=== PATIENT | female | born 1960 | race Caucasian/White ===

== ENCOUNTER 2018-05-14 04:22 | Inpatient (IN) | payer OTHER ==
[~2018-05-14] VITALS: Ht 160 cm; Wt 54.4 kg
[~2018-05-14 04:22] MED LIST: ACETAMINOPHEN325 M1 PO; AUGMENTIN 875875 MG PO; BACTRIM DS TAB1 EACH PO; BENADRYL25 MG PO; BENTYL10 MG PO; BONIVA150 MG PO; BONIVA2.5 MG PO; CARISOPRODOL 3350 MG PO; CHANTIX1 MG; CIPROFLOXACIN500 M1 PO; COMPAZINE25 MG RECTAL; DILAUDID 2 MG TA2 MG PO; DILAUDID4 MG PO; EXCEDRIN CAPLE1 EACH PO; FLAGYL500 MG PO; FLEXERIL; IBUPROFEN 800800 M1 PO; KEFLEX500 MG PO; LINZESS290 MCG PO; MELATONIN3 MG PO; MULTI VITAMIN1 EACH PO; NORCO 5-325 TA1 EAC1 PO; ONDANSETRON HCL4 M2 PO; PERCOCET 5-3251 EACH PO; PLAVIX 75 MG TA75 M1 PO; PLAVIX 75 MG TA75 MG PO; PRILOSEC 20 MG20 MG PO; PROMS25 WY RECTAL; PROZAC 20 MG20 M1 PO; PROZAC PO; PROZAC20 MG PO; PROZAC40 MG PO; SIMVASTATIN20 MG PO; TRAMADOL 50 MG50 MG PO; TRAMADOL HCL50 MG PO; ULTRAM 50MG TAB50 MG PO; VANCOCIN 250 M250 M1 PO; VITAMIN D2000 UNIT PO; ZANAFLEX2 MG PO; ZANAFLEX4 M2 PO; ZOFRAN ODT4 MG PO; ZOFRAN ODT4 MG SUBLING
[2018-05-14 04:23] VITALS: BP 120/59
[2018-05-14 05:08] LABS: HEMATOCRIT 39.9 % (37.0-47.0); HEMOGLOBIN 13.1 gm/dL (12.0-15.0); MCH 28.3 pg (26.0-34.0); MCHC 32.9 g/dL (28.0-37.0); MPV 8.3 fl. (7.2-11.1); NUCLEATED RBCS 0 /100WBC; PLATELET COUNT* 338 thou/uL (150-400); RBC 4.63 mil/uL (4.20-5.00); RDW-CV 14.4 % (10.5-14.5); WBC 27.8 thou/uL (4.0-11.0)
[2018-05-14 05:15] LABS: CALCIUM 9.3 mg/dL (8.5-10.1); CREATININE 0.9 mg/dL (0.6-1.3); POTASSIUM 3.9 mmol/L (3.5-5.1)
[2018-05-14 05:20] LABS: ALBUMIN 3.7 g/dL (3.4-5.0); TOTAL BILIRUBIN 0.2 mg/dL (<0.1-1.0); TOTAL PROTEIN 7.3 g/dL (6.4-8.2)
[2018-05-14 05:52] LABS: ABSOLUTE LYMPHOCYTES 4.2 thou/uL (0.8-5.3); ABSOLUTE MONOCYTES 1.1 thou/uL (0.0-1.2); ABSOLUTE NEUTROPHILS 22.5 thou/uL (1.6-8.1)
[2018-05-14 05:53] LABS: ANISOCYTOSIS 1+; PLATELET ESTIMATE ADEQUATE; POIKILOCYTOSIS 1+
[2018-05-14 08:50] LABS: URINE BILIRUBIN NEGATIVE (Negative); URINE BLOOD TRACE (Negative); URINE CLARITY CLEAR; URINE COLOR YELLOW; URINE GLUCOSE-RANDOM NEGATIVE (Negative); URINE KETONES NEGATIVE (Negative); URINE LEUKOCYTES-REFLEX NEGATIVE (Negative); URINE NITRITE-REFLEX NEGATIVE (Negative); URINE PROTEIN NEGATIVE (Negative); URINE SPECIFIC GRAVITY <= 1.005 (1.005-1.030); URINE UROBILINOGEN 0.2 E.U./dl (0.2-1.0)
[2018-05-14 08:53] VITALS: BP 96/52
[2018-05-14 09:41] VITALS: BP 112/42
[2018-05-14 15:44] VITALS: BP 98/58
--- NOTE | 2018-05-14 17:33 | NUR ---
ASSUMED CARE OF PATIENT AFTER ADMISSION FROM ED AT 0910. ADMISSION HISTORY AND ASSESSMENT COMPLETED AND CHARTED. VSS ON ROOM AIR. PATINT HAS HAD NO COMPLAINTS OF NAUSEA OR SOA THIS SHIFT. PAIN HAS BEEN MANAGED WITH PO PAIN MEDICATION. FLUIDS AND ANTIBIOTICS INFUSED ORDERED. PATIENT HAS BEEN SLEEPING UPON ROUNDS THROUGHOUT SHIFT. CALL LIGHT IS WITHIN REACH, HORULY ROUNDS MAINTAINED, NURSING WILL CONTINUE TO MONITOR.
[2018-05-14 20:00] VITALS: BP 92/41
[2018-05-15 03:53] LABS: HEMATOCRIT 35.2 % (37.0-47.0); HEMOGLOBIN 11.6 gm/dL (12.0-15.0); MCH 28.4 pg (26.0-34.0); MCHC 33.1 g/dL (28.0-37.0); MCV 85.8 fL (80.0-100.0); MPV 8.1 fl. (7.2-11.1); RBC 4.1 mil/uL (4.20-5.00); RDW-CV 14.5 % (10.5-14.5)
[2018-05-15 04:30] LABS: ALBUMIN 3.1 g/dL (3.4-5.0); CALCIUM 8.7 mg/dL (8.5-10.1); CREATININE 0.9 mg/dL (0.6-1.3); MAGNESIUM 1.8 mg/dL (1.8-2.4); POTASSIUM 4.1 mmol/L (3.5-5.1); TOTAL BILIRUBIN 0.3 mg/dL (<0.1-1.0); TOTAL PROTEIN 5.9 g/dL (6.4-8.2)
[2018-05-15 04:35] LABS: WBC 11.6 thou/uL (4.0-11.0)
--- NOTE | 2018-05-15 06:00 | NUR ---
PATIENT ORIENTED X4 ON HOURLY ROUNDS. PO DILAUDID GIVEN X1 FOR ABD PAIN WITH GOOD RESULTS REPORTED. UP AD JOELLEN. TOLERATED CLEAR LIQUIDS OVERNIGHT. VITALS STABLE. CONTINUE TO MONITOR.
[2018-05-15 08:20] VITALS: BP 94/40
[2018-05-15 09:57] VITALS: BP 94/40
--- NOTE | 2018-05-15 14:09 | NUR ---
ASSUMED CARE OF PATIENT AFTER MORNING REPORT AT 0720. ALERT AND ORIENTED X4. ASSESSMENT COMPLETED AND CHARTED. VSS ON ROOM AIR/ PATIENT HAS NO COMPLAINTS OF NAUSEA OR SOA. PAIN HAS BEEN MINIMAL AND MANAGED WITH ORAL PAIN MEDICAION. FLUIDS AND ANTIBIOTICS INFUSED ORDERED. PATIENTS DIET ADVANCED FROM CLEAR LIQUIDS TO REGULAR AND PATIENT IS TOLERATING IT WELL. PATIENT DISCHARGED AT 1346. ALL PERSONAL BELONGINGS AND DISCHARGE INFORMATION SENT WITH PATIENT UPON DISCHARGE.
--- NOTE | 2018-05-31 12:36 | CON ---
[address] [address] CONSULTATION Name: RAÚL CARIAS Room: [address] IN .R.#: [id number] Admission: 05/14/18 Attend Phys: Dolores Montgomery MD Discharge: 05/15/18 Date of : 58 Report #: [id number] THIS REPORT FOR: //name// CC: Federico Montgomery MD DATE OF SERVICE: 05/14/2018 REFERRING PHYSICIAN: Dr. Dolores Montgomery. REASON FOR CONSULTATION: Abdominal pain and diarrhea. IMPRESSION: 1. Abdominal pain associated with nausea, vomiting, diarrhea, most compatible with previous episodes of ischemic colitis -- evaluate for infectious causes related to the same. 2. Dehydration secondary to the same. 3. Lactic acidosis, which has resolved. RECOMMENDATIONS: 1. Since the patient is doing better at this time, we will advance diet as tolerated. 2. Await the results of his stool studies to evaluate for culture and sensitivity as well as C. difficile toxin assay. 3. We will switch over to oral pain medication in the morning. If she is tolerating diet, she can be controlled with oral medications and she can probably go home tomorrow. We will plan at this time for endoscopic evaluation. I have discussed the plan with patient as well and she is agreeable to the same. HISTORY OF PRESENT ILLNESS: The patient is a very pleasant 57-year-old white female with history of recurrent bouts of ischemic colitis who was admitted to hospital early this morning with complaints of rather severe abdominal pain associated with nausea, vomiting, diarrhea. She has had episodes like this in the past, has been hospitalized at least usually once a year, sometimes here, sometimes at [facility] with the last hospitalization being over a year ago. She has had documented episodes of ischemic colitis, symptoms related to constipation, but she does not have any issues related to the same at this time. She just woke up with severe abdominal pain associated with nausea, vomiting, diarrhea, and admitted to the hospital for further evaluation. She has not been exposed to any antibiotics and has not had any other issues. Her last endoscopic evaluation of her lower GI tract was performed. Her last colonoscopy was performed by me in 06/2013 at [facility] and was unremarkable. She was admitted to hospital for further [place] [address] CONSULTATION Name: RAÚL CARIAS Room: [address]#: [id number] Admission: 05/14/18 Attend Phys: Dolores Montgomery MD Discharge: 05/15/18 Date of : 58 Report #: [id number] treatment. ALLERGIES: OXYCODONE AND HYDROCODONE WELL METRONIDAZOLE BECAUSE THIS MAKES HER SICK. MEDICATIONS: At home include fluoxetine, hydromorphone p.r.n. when she has severe back pain, Plavix and p.r.n. ibuprofen. PAST MEDICAL AND SURGICAL HISTORY: Remarkable for history of recurrent ischemic colitis with bouts related to the same. She has had previous celiac artery stenting that has not helped with issues related to the same. She has had history of migraines, anxiety and depression. She has had total hysterectomy, tubal ligation, appendectomy, history of Lyme disease in the past, history of C. diff as well back in 2008. SOCIAL HISTORY: The patient does smoke pot, but not on a regular basis. She previously smoked tobacco, but quit over a year ago. She drinks occasional alcohol. FAMILY HISTORY: Negative. PHYSICAL EXAMINATION: GENERAL: A pleasant 57-year-old white female who is awake and alert. CARDIOPULMONARY: Revealed a regular rate and rhythm. LUNGS: Clear. ABDOMEN: Soft and minimally tender. LABORATORY DATA: From admission revealed a white count 27.8, hemoglobin 13.1, platelet count 338,000, MCV is 86 and RDW 14.4. Her sodium 138, potassium 3.9, chloride 105, bicarbonate is 25, BUN is 15, creatinine 0.9. Her GFR is 64. Total bilirubin 0.2, alkaline phosphatase 117, AST 38, ALT 39, albumin is 3.7. CT scan of the abdomen and pelvis performed suggest that there was diffuse colonic edema compatible with colitis, otherwise unremarkable. DISCUSSION: At the present time, this appears to be a typical episode for the patient with regards to her issues and the same. We will proceed with conservative measures at this point in time, however, she will be able to go home in the next 24-48 hours. <ELECTRONICALLY SIGNED> By: Darek Kirby DO 05/31/18 1236 1121 1803Gmoi Kirby DO /nt
== END 2018-05-15 13:46 | disposition home or self-care (01) | DRG 392 ==
LOC: M.ERS 04:22 → M.ORTHSURG 06:44 → M.TBA-ER 06:44 → M.ORTHSURG 08:49
PROVIDERS: Emergency Medicine; ADMIT Internal Medicine
DX: A08.4 Viral intestinal infection, unspecified (principal); R65.10 Systemic inflammatory response syndrome (SIRS) of non-infectious origin without acute organ dysfunction; K51.00 Ulcerative (chronic) pancolitis without complications; E87.2 Acidosis; M19.90 Unspecified osteoarthritis, unspecified site; F32.9 Major depressive disorder, single episode, unspecified; G43.909 Migraine, unspecified, not intractable, without status migrainosus; D72.829 Elevated white blood cell count, unspecified; E86.0 Dehydration; Z90.49 Acquired absence of other specified parts of digestive tract; Z90.710 Acquired absence of both cervix and uterus; Z88.6 Allergy status to analgesic agent; Z88.8 Allergy status to other drugs, medicaments and biological substances; Z87.891 Personal history of nicotine dependence; Z79.899 Other long term (current) drug therapy

== ENCOUNTER 2018-09-30 10:50 | Inpatient (IN) | payer OTHER ==
[~2018-09-30] VITALS: Ht 160 cm; Wt 54.0 kg
[2018-09-30] VITALS (7 sets, daily range): BP systolic 83–129; BP diastolic 32–87
--- NOTE | ~2018-09-30 | CON ---
[address] [address] CONSULTATION Name: RAÚL CARIAS Room: [address]#: [id number] Admission: 09/30/18 Attend Phys: Dolores Montgomery MD Discharge: 10/03/18 Date of : 58 Report #: [id number] THIS REPORT FOR: //name// CC: Federico Montgomery DATE OF SERVICE: 10/02/2018 HISTORY OF PRESENT ILLNESS: This is a pleasant 58-year-old female with past medical history significant for chronic idiopathic constipation, recurrent episode of ischemic colitis who is presenting with an episode of abdominal pain and bloody bowel movements. The patient presented on 09/30 to the hospital with several episodes of hematochezia. The patient reports noticing a moderate amount of bright red blood in her stool. She reports associated epigastric abdominal pain along with cramps. Prior to presentation, the patient reports that she had been increasingly constipated for the last 2 weeks. She denies any rectal pain. The patient also denies any weight loss, nausea, vomiting, hematemesis or melena. PAST MEDICAL HISTORY: As mentioned above. The patient has a history of recurrent ischemic colitis. PAST SURGICAL HISTORY: The patient had appendectomy, hysterectomy, tubal ligation in the past. SOCIAL HISTORY: The patient is a former smoker and has a 33-[id number]-jcbh smoking history. She denies alcohol use, but does report intermittent marijuana use. FAMILY HISTORY: There is no significant family history of colorectal cancer. REVIEW OF SYSTEMS: A comprehensive 10-point review of systems is negative except for what was mentioned in the HPI. PHYSICAL EXAMINATION: VITAL SIGNS: Temperature 36.9, pulse rate 80, respiratory rate 17, blood pressure 115/65. GENERAL: The patient is alert, awake, oriented x 3. HEENT: Pupils are equal, round, reactive to light and accommodation. Mucous membranes are moist. There is no congestion. LUNGS: Clear to auscultation bilaterally. CARDIOVASCULAR: Rate and rhythm regular, S1, S2 present. ABDOMEN: Soft. There is no distention, guarding or rigidity. SKIN: Warm and dry. NEUROLOGIC: There is no focal [place] [address] CONSULTATION Name: RAÚL CARIAS Room: [address]#: [id number] Admission: 09/30/18 Attend Phys: Dolores Montgomery MD Discharge: 10/03/18 Date of : 58 Report #: [id number] LABORATORY DATA: Hemoglobin 11.3, hematocrit 33.7, platelet count 271. WBC count 15.5. Sodium 140, potassium 3.3, chloride 106, bicarbonate 20, BUN 9, creatinine 0.6, calcium 8.4, magnesium 1.6, total bilirubin 0.6, AST 30, ALT 37, alkaline phosphatase 70. CT abdomen and pelvis performed on 09/30, normal CT of abdomen and pelvis. ASSESSMENT AND PLAN: This is a pleasant 58-year-old female with past medical history significant for recurrent ischemic colitis, presenting with abdominal pain and hematochezia. Her last bowel movement was a day and a half and since then, the patient has had no further hematochezia. I offered the patient a colonoscopy for endoscopic evaluation of the source of the bleeding; however, the patient refused. She recently had a colonoscopy by Dr. Kirby. The colonoscopy was performed on 08/13/2018, and this demonstrated a completely normal colonoscopy. At this point, we would conservatively manage her and monitor her for signs of bleeding. Thank you for this consult. The GI Service will continue to follow. By: 1243 [id number] Quevedo MD /nt
[2018-09-30 11:19] LABS: HEMATOCRIT 37.2 % (37.0-47.0); HEMOGLOBIN 12.1 gm/dL (12.0-15.0); MCHC 32.5 g/dL (28.0-37.0); MCV 86.3 fL (80.0-100.0); MPV 8.3 fl. (7.2-11.1); NUCLEATED RBCS 0 /100WBC; PLATELET COUNT* 351 thou/uL (150-400); RBC 4.31 mil/uL (4.20-5.00); RDW-CV 14.6 % (10.5-14.5); WBC 21.2 thou/uL (4.0-11.0)
[2018-09-30 11:29] LABS: ANION GAP 18 mmol/L (7-16); BUN 18 mg/dL (7-18); CALCIUM 8.5 mg/dL (8.5-10.1); CHLORIDE 106 mmol/L (98-107); CO2 17 mmol/L (21-32); CREATININE 0.8 mg/dL (0.6-1.3); GLUCOSE 157 mg/dL (70-99); POTASSIUM 3.3 mmol/L (3.5-5.1); SODIUM 141 mmol/L (136-145)
[2018-09-30 11:31] LABS: APTT 26.6 Seconds (25.0-31.3); PROTIME 10.6 Seconds (9.20-11.50)
[2018-09-30 11:36] LABS: ALBUMIN 3.8 g/dL (3.4-5.0); ALKALINE PHOSPHATASE 98 U/L (46-116); LIPASE 78 U/L (73-393); SGOT 31 U/L (15-37); SGPT 37 U/L (30-65); TOTAL BILIRUBIN 0.3 mg/dL (<0.1-1.0); TOTAL PROTEIN 7.1 g/dL (6.4-8.2); TROPONIN-I LEVEL <0.06 ng/mL (<0.06)
[2018-09-30 11:49] LABS: URINE BILIRUBIN NEGATIVE (Negative); URINE BLOOD 1+ (Negative); URINE CLARITY CLEAR; URINE COLOR YELLOW; URINE GLUCOSE-RANDOM TRACE (Negative); URINE KETONES 2+ (Negative); URINE LEUKOCYTES-REFLEX NEGATIVE (Negative); URINE NITRITE-REFLEX NEGATIVE (Negative); URINE PROTEIN NEGATIVE (Negative); URINE SPECIFIC GRAVITY 1.015 (1.005-1.030); URINE UROBILINOGEN 0.2 E.U./dl (0.2-1.0)
[2018-09-30 12:02] LABS: AMP/METHAMP Negative (Negative); BARBITURATES Negative (Negative); BENZODIAZEPINES Negative (Negative); COCAINE Negative (Negative); METHADONE Negative (Negative); OPIATES Negative (Negative); PCP Negative (Negative); THC POSITIVE (Negative)
[2018-09-30 12:08] LABS: ABSOLUTE LYMPHOCYTES 1.9 thou/uL (0.8-5.3); ABSOLUTE MONOCYTES 0.2 thou/uL (0.0-1.2); ABSOLUTE NEUTROPHILS 19.1 thou/uL (1.6-8.1)
[2018-09-30 12:10] LABS: GIANT PLATELETS RARE; LARGE PLATELETS RARE; PLATELET ESTIMATE ADEQUATE
[2018-09-30 12:12] LABS: HYPOCHROMASIA 1+
[2018-09-30 12:13] LABS: BURR CELLS Occasional; OVALOCYTES Occasional; POIKILOCYTOSIS 1+
[2018-09-30 12:14] LABS: CLUMPED PLTS FEW; MACROCYTES Occasional
[2018-09-30 12:15] LABS: POLYCHROMASIA Occasional
[2018-09-30 12:24] LABS: SQUAMOUS NONE SEEN /LPF (0-3)
[2018-09-30 12:25] LABS: BACTERIA-REFLEX 1-9 Few /HPF (None Seen); CASTS None Seen /LPF (None Seen); MUCUS None Seen strn/LPF (None Seen); URINE RBC 0-2 Rare /HPF (0-2); URINE WBC-REFLEX 0-5 Rare /HPF (0-5)
[2018-09-30 12:26] LABS: CRYSTALS None Seen /LPF (None Seen)
[2018-09-30 15:02] LABS: HEMATOCRIT 34.1 % (37.0-47.0); HEMOGLOBIN 11.3 gm/dL (12.0-15.0); MCH 28.3 pg (26.0-34.0); MCHC 33.1 g/dL (28.0-37.0); MCV 85.4 fL (80.0-100.0); MPV 8.3 fl. (7.2-11.1); RBC 3.99 mil/uL (4.20-5.00); RDW-CV 14.2 % (10.5-14.5); WBC 23.2 thou/uL (4.0-11.0)
[2018-09-30 19:04] LABS: ABSOLUTE LYMPHOCYTES 2.3 thou/uL (0.8-5.3); ABSOLUTE NEUTROPHILS 16.2 thou/uL (1.6-8.1); BASOPHILS 0.1 %; HEMATOCRIT 33.9 % (37.0-47.0); HEMOGLOBIN 11.3 gm/dL (12.0-15.0); LYMPHOCYTES 11.7 %; MCH 28.2 pg (26.0-34.0); MCHC 33.3 g/dL (28.0-37.0); MCV 84.9 fL (80.0-100.0); MONOCYTES 5.1 %; MPV 8.6 fl. (7.2-11.1); NUCLEATED RBCS 0 /100WBC; PLATELET COUNT* 294 thou/uL (150-400); POLYS 83.1 %; RBC 3.99 mil/uL (4.20-5.00); RDW-CV 14.4 % (10.5-14.5); WBC 19.5 thou/uL (4.0-11.0)
[2018-10-01] VITALS (11 sets, daily range): BP systolic 93–115; BP diastolic 41–73
[2018-10-01 04:07] LABS: HEMATOCRIT 32.1 % (37.0-47.0); HEMOGLOBIN 10.8 gm/dL (12.0-15.0); MCH 28.8 pg (26.0-34.0); MCHC 33.7 g/dL (28.0-37.0); MCV 85.5 fL (80.0-100.0); MPV 8.4 fl. (7.2-11.1); RBC 3.75 mil/uL (4.20-5.00); RDW-CV 14.5 % (10.5-14.5); WBC 15.5 thou/uL (4.0-11.0)
[2018-10-01 05:20] LABS: ALBUMIN 3.1 g/dL (3.4-5.0); CREATININE 0.8 mg/dL (0.6-1.3); MAGNESIUM 1.8 mg/dL (1.8-2.4); POTASSIUM 3.4 mmol/L (3.5-5.1); TOTAL BILIRUBIN 0.5 mg/dL (<0.1-1.0); TOTAL PROTEIN 5.6 g/dL (6.4-8.2)
[2018-10-01 15:24] LABS: HEMATOCRIT 31.7 % (37.0-47.0); HEMOGLOBIN 10.5 gm/dL (12.0-15.0); MCH 28.6 pg (26.0-34.0); MCHC 33.1 g/dL (28.0-37.0); MCV 86.3 fL (80.0-100.0); MPV 8.3 fl. (7.2-11.1); RBC 3.67 mil/uL (4.20-5.00); RDW-CV 14.8 % (10.5-14.5); WBC 13.4 thou/uL (4.0-11.0)
--- NOTE | 2018-10-01 18:03 | EKG ---
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 : 1960 Requested By: Juany Winslow Order Number: [id number] MD: Ayaz Rodgers Measurements Intervals [place] Rate: 74 P: 81 MS: 180 QRS: 68 QRSD: 220 T: QT: 485 QTc: 539 Interpretive Statements Sinus rhythm Nonspecific ST segment depression Prolonged QT interval Compared to ECG 04/30/2017 05:23:55 No significant changes noted Electronically Signed On 10-01-2018 18:03:37 EMPLOYEE RELATIONS REPRESENTATIVE by Ayaz Rodgers [email or web address] <ELECTRONICALLY SIGNED> By: Ayaz Rodgers MD, [facility] 10/01/18 1803 1114 111 Ayaz Rodgers MD, [facility] /EPI
[2018-10-02 03:15] VITALS: BP 117/54
[2018-10-02 04:38] LABS: HEMATOCRIT 33.7 % (37.0-47.0); HEMOGLOBIN 11.3 gm/dL (12.0-15.0); MCH 28.7 pg (26.0-34.0); MCHC 33.6 g/dL (28.0-37.0); MCV 85.6 fL (80.0-100.0); MPV 8.8 fl. (7.2-11.1); RBC 3.93 mil/uL (4.20-5.00); RDW-CV 14.5 % (10.5-14.5); WBC 15.5 thou/uL (4.0-11.0)
[2018-10-02 04:46] LABS: ALBUMIN 3.2 g/dL (3.4-5.0); CALCIUM 8.4 mg/dL (8.5-10.1); CREATININE 0.6 mg/dL (0.6-1.3); MAGNESIUM 1.6 mg/dL (1.8-2.4); POTASSIUM 3.3 mmol/L (3.5-5.1); TOTAL BILIRUBIN 0.6 mg/dL (<0.1-1.0); TOTAL PROTEIN 6.4 g/dL (6.4-8.2)
[2018-10-02 08:00] VITALS: BP 115/65
[2018-10-02 16:23] VITALS: BP 117/70
[2018-10-02 20:00] VITALS: BP 118/97
[2018-10-02 23:40] VITALS: BP 113/68
[2018-10-03 03:33] VITALS: BP 111/53
[2018-10-03 04:14] LABS: HEMATOCRIT 35.9 % (37.0-47.0); HEMOGLOBIN 12.2 gm/dL (12.0-15.0); MCH 29.2 pg (26.0-34.0); MCHC 33.9 g/dL (28.0-37.0); MPV 8.7 fl. (7.2-11.1); RBC 4.18 mil/uL (4.20-5.00); RDW-CV 14.1 % (10.5-14.5); WBC 10.7 thou/uL (4.0-11.0)
[2018-10-03 04:29] LABS: CALCIUM 8.8 mg/dL (8.5-10.1); CREATININE 0.6 mg/dL (0.6-1.3); POTASSIUM 4.2 mmol/L (3.5-5.1)
[2018-10-03] MEDS ORDERED: MIRALAX17 GM PO (10:26)
[2018-10-03] MEDS ORDERED: MAGOX 400400 MG PO (10:26)
[2018-10-03] MEDS ORDERED: FIBERCON CHEWA625 MG PO (10:26)
[2018-10-03 12:19] VITALS: BP 111/53
== END 2018-10-03 13:05 | disposition home or self-care (01) | DRG 871 ==
LOC: M.ERS 10:50 → M.TBA-ER 14:13 → M.ICU 14:13 → M.TBA-ER 14:50 → M.ICU 17:35 → M.3W 10-01 14:10
PROVIDERS: Emergency Medicine; Nurse Practitioner Family; ADMIT Internal Medicine
DX: A41.9 Sepsis, unspecified organism (principal); K55.039 Acute (reversible) ischemia of large intestine, extent unspecified; K92.2 Gastrointestinal hemorrhage, unspecified; A69.20 Lyme disease, unspecified; K92.1 Melena; K55.1 Chronic vascular disorders of intestine; F32.9 Major depressive disorder, single episode, unspecified; G43.909 Migraine, unspecified, not intractable, without status migrainosus; M19.90 Unspecified osteoarthritis, unspecified site; F12.90 Cannabis use, unspecified, uncomplicated; I95.9 Hypotension, unspecified; K59.00 Constipation, unspecified; Z90.49 Acquired absence of other specified parts of digestive tract; Z90.710 Acquired absence of both cervix and uterus; Z88.6 Allergy status to analgesic agent; Z88.8 Allergy status to other drugs, medicaments and biological substances; Z87.891 Personal history of nicotine dependence; Z23 Encounter for immunization

== ENCOUNTER 2019-09-27 05:25 | Inpatient (IN) | payer OTHER ==
[~2019-09-27] VITALS: Ht 160 cm; Wt 53.5 kg
[~2019-09-27 05:25] MED LIST changes: +FIBERCON CHEWA625 MG PO; +MAGOX 400400 MG PO; +MIRALAX17 GM PO
[2019-09-27 05:27] VITALS: BP 106/80
[2019-09-27 05:45] LABS: HEMATOCRIT 40.1 % (37.0-47.0); MCH 27.9 pg (26.0-34.0); MCHC 32.5 g/dL (28.0-37.0); MCV 85.9 fL (80.0-100.0); MPV 8.4 fl. (7.2-11.1); NUCLEATED RBCS 0 /100WBC; PLATELET COUNT* 360 thou/uL (150-400); RBC 4.67 mil/uL (4.20-5.00); RDW-CV 14.4 % (10.5-14.5); WBC 29.6 thou/uL (4.0-11.0)
[2019-09-27 05:58] LABS: BUN 16 mg/dL (7-18); CALCIUM 9.5 mg/dL (8.5-10.1); CO2 15 mmol/L (21-32); GLUCOSE 197 mg/dL (70-99); SODIUM 142 mmol/L (136-145)
[2019-09-27 06:00] LABS: ANION GAP < 0 mmol/L (7-16); CHLORIDE 1040 mmol/L (98-107); POTASSIUM 2.9 mmol/L (3.5-5.1)
[2019-09-27 06:02] LABS: ALBUMIN 3.9 g/dL (3.4-5.0); ALKALINE PHOSPHATASE 112 U/L (46-116); SGOT 53 U/L (15-37); SGPT 54 U/L (30-65); TOTAL BILIRUBIN 0.1 mg/dL (<0.1-1.0)
[2019-09-27 06:19] LABS: ABSOLUTE LYMPHOCYTES 4.4 thou/uL (0.8-5.3); ABSOLUTE MONOCYTES 0.6 thou/uL (0.0-1.2); ABSOLUTE NEUTROPHILS 24.6 thou/uL (1.6-8.1); METAMYELOCYTES 1 %
[2019-09-27 06:20] LABS: PLATELET ESTIMATE ADEQUATE
[2019-09-27 06:36] LABS: URINE BILIRUBIN NEGATIVE (Negative); URINE BLOOD 3+ (Negative); URINE CLARITY CLOUDY; URINE COLOR YELLOW; URINE GLUCOSE-RANDOM NEGATIVE (Negative); URINE KETONES 3+ (Negative); URINE LEUKOCYTES-REFLEX 2+ (Negative); URINE NITRITE-REFLEX NEGATIVE (Negative); URINE PROTEIN 1+ (Negative); URINE SPECIFIC GRAVITY 1.025 (1.005-1.030); URINE UROBILINOGEN 0.2 E.U./dl (0.2-1.0)
[2019-09-27 06:49] LABS: SQUAMOUS >10 Many /LPF (0-3)
[2019-09-27 06:50] LABS: BACTERIA-REFLEX >30 Many /HPF (None Seen)
[2019-09-27 06:52] LABS: URINE WBC-REFLEX 6-15 Few /HPF (0-5)
[2019-09-27 06:53] LABS: CASTS None Seen /LPF (None Seen)
[2019-09-27 06:56] LABS: CRYSTALS None Seen /LPF (None Seen); YEAST-REFLEX Present (None Seen)
--- NOTE | 2019-09-27 08:07 | NUR ---
22 G IV INSERTED IN LEFT THUMB BY THIS NURSE. TRANSPARENT DRESSING APPLIED AND KERLEX WRAPPED AROUND IV AND IV TUBING FOR SECURING.
[2019-09-27 08:41] LABS: CALCIUM 8.9 mg/dL (8.5-10.1); CREATININE 0.8 mg/dL (0.6-1.3); POTASSIUM 3.2 mmol/L (3.5-5.1)
[2019-09-27 10:03] VITALS: BP 106/76
[2019-09-27 10:15] VITALS: BP 96/43
[2019-09-27 11:31] VITALS: BP 100/54
[2019-09-27 16:21] VITALS: BP 101/48
--- NOTE | 2019-09-27 19:38 | NUR ---
RECEIVED REPORT FROM MT IN ER. PT ARRIVED TO TELE FLOOR AROUND 1015. ASSUMED CARE. PT A&O X4. VSS, BP'S A BIT SOFT, PT ASYMPTOMATIC. PT ORIENTED TO ROOM BED AND CALL LIGHT, COMMUNCIATES UNDERSTANDING. PT WITH LEFT THUMB IV - NOT WORKING VERY WELL, PT A VERY HARD STICK. DR DOSS NOTIFIED, GAVE ORDER FOR CENTRAL LINE INSERITON. CENTRAL LINE INSERTED BY DR. CRAWFORD. MEDS PER EMAR. CENTRAL LINE OOZING FROM INSERTION SITE - DRESSING CHANGED AT 1845. PT RECEIVED PO PAIN MEDICATION FOR COMPLAINT OF PAIN IN NECK FROM CENTRAL LINE, RELIEF OBTAINED. ELECTROLYTES REPLACED. PT REMOVED HER GOLD CROSS NECKLACE PRIOR TO INSERTION OF CENTRAL LINE, PLACED IN TOP DRAWER OF BEDSIDE TABLE - TO BE SENT HOME WITH TOMORROW. PT CURRENTLY SLEEPING. CALL LIGHT IS WITHIN REACH. FALL PRECAUTIONS IN PLACE. NPO STATUS MAINTAINED. HOURLY ROUNDING PERFORMED.
[2019-09-27 20:00] VITALS: BP 111/47
[2019-09-28] VITALS: BP 108/48
[2019-09-28 04:00] VITALS: BP 115/53
[2019-09-28 05:44] LABS: HEMATOCRIT 32.1 % (37.0-47.0); MCH 28.5 pg (26.0-34.0); MCHC 33.3 g/dL (28.0-37.0); MCV 85.4 fL (80.0-100.0); MPV 8.6 fl. (7.2-11.1); RBC 3.77 mil/uL (4.20-5.00); RDW-CV 14.5 % (10.5-14.5)
[2019-09-28 05:45] LABS: HEMOGLOBIN 10.7 gm/dL (12.0-15.0); WBC 13.4 thou/uL (4.0-11.0)
[2019-09-28 05:54] LABS: CALCIUM 8.3 mg/dL (8.5-10.1); CREATININE 0.8 mg/dL (0.6-1.3); POTASSIUM 3.6 mmol/L (3.5-5.1)
[2019-09-28 08:00] VITALS: BP 116/58
--- NOTE | 2019-09-28 09:23 | NUR ---
ASSUMED PATIENT CARE AT 1900. ASSESSMENT COMPLETED CHARTED. PATIENT IS NSR ON THE MONITOR. HOURLY ROUNDING IN PLACE FOR PATIENT SAFETY. CLWR.
[2019-09-28 11:59] VITALS: BP 136/49
[2019-09-28 16:27] VITALS: BP 117/53
--- NOTE | 2019-09-28 16:59 | NUR ---
Pt lives at home with spouse. No needs anticipated at dc at this time; SW to continue to follow to assist with safe dc planning if needs arise.
--- NOTE | 2019-09-28 18:28 | NUR ---
ASSUMED PT CARE REPORT RECEIVED FROM NURSE. PT IS AOX4 SR ON STRAIGHTENER GUN PARTS ON RA. PT UP WITH ASSIST X1 TO RESTROOM. IV FLUID INFUSING AT 100 PER HOUR. PT COMPLAINS OF HEADACHE. HYDROMORPHONE GIVEN ORDERED. REGLAN GIVEN FOR NAUSEA. PT STATES RELIEF AFTER REGLAN WAS GIVEN. RIGHT CENTRAL LINE PATENT. NO FURTHER COMPLAINT. WILL CONTINUE TO MONITOR
[2019-09-28 20:00] VITALS: BP 125/52
[2019-09-29] VITALS: BP 130/65
[2019-09-29 04:00] VITALS: BP 129/62
[2019-09-29 05:43] LABS: HEMATOCRIT 30.9 % (37.0-47.0); HEMOGLOBIN 10.6 gm/dL (12.0-15.0); MCH 29.1 pg (26.0-34.0); MCHC 34.2 g/dL (28.0-37.0); MCV 84.9 fL (80.0-100.0); MPV 8.5 fl. (7.2-11.1); RBC 3.64 mil/uL (4.20-5.00); RDW-CV 14.1 % (10.5-14.5); WBC 13.7 thou/uL (4.0-11.0)
[2019-09-29 05:58] LABS: ALBUMIN 3.1 g/dL (3.4-5.0); CALCIUM 8.5 mg/dL (8.5-10.1); CREATININE 0.7 mg/dL (0.6-1.3); MAGNESIUM 1.7 mg/dL (1.8-2.4); POTASSIUM 3.3 mmol/L (3.5-5.1); TOTAL BILIRUBIN 0.5 mg/dL (<0.1-1.0); TOTAL PROTEIN 6.1 g/dL (6.4-8.2)
[2019-09-29 08:00] VITALS: BP 130/58
--- NOTE | 2019-09-29 08:31 | NUR ---
ASSUMED PATIENT CARE AT 1900. ASSESSMENT COMPLETED CHARTED. PATIENT IS NSR ON THE MONITOR. HOURLY ROUNDING IN PLACE FOR PATIENT SAFETY. CLWR.
[2019-09-29] MEDS ORDERED: CIPRO500 M1 PO (10:37)
[2019-09-29] MEDS ORDERED: ZOFRAN ODT4 MG PO (10:37)
[2019-09-29 12:04] VITALS: BP 134/68
[2019-09-29 13:13] VITALS: BP 134/68
--- NOTE | 2019-09-29 13:35 | NUR ---
ASSUMED PT CARE REPORT RECEIVED FROM NURSE PT IS AOX4 ON RA. SR ON SENIOR ERP CONSULTANT. UP WITH STAND BY ASSIST TO RESTROOM. CENTRAL LINE PATENT. IV FLUID INFUSING. DISCHARGE ORDERED. CENTRAL LINE REMOVED ORDERED. PRESSURE HELD AND COTTON BALL PLACED AND TAPED DRESSING. NO COMPLICATION NOTED. PT DENIES N/V. ATE A REGULAR DIET PRIOR TO DISCHARGE. REFUSED HER 1100 AM REGLAN DOSE. PT LEFT FLOOR AT 1335 ACCOMPANIED BY NURSING STAFF ON WHEELCHAIR.
[2019-09-29 13:55] VITALS: BP 134/68
== END 2019-09-29 13:40 | disposition home or self-care (01) | DRG 871 ==
LOC: M.ERS 05:25 → M.TBA-ER 09:01 → M.2W 09:01
PROVIDERS: Emergency Medicine Emergency Medical Services; Personal Emergency Response Attendant; ADMIT Internal Medicine
PROC: 05HM33Z Insertion of Infusion Device into Right Internal Jugular Vein, Percutaneous Approach (ICD-10-PCS; principal; 2019-09-27)
PROC: B543ZZA Ultrasonography of Right Jugular Veins, Guidance (ICD-10-PCS; principal; 2019-09-27)
DX: A41.9 Sepsis, unspecified organism (principal); K55.039 Acute (reversible) ischemia of large intestine, extent unspecified; E87.2 Acidosis; R15.9 Full incontinence of feces; M19.90 Unspecified osteoarthritis, unspecified site; E86.9 Volume depletion, unspecified; F32.9 Major depressive disorder, single episode, unspecified; G43.909 Migraine, unspecified, not intractable, without status migrainosus; I87.2 Venous insufficiency (chronic) (peripheral); F17.210 Nicotine dependence, cigarettes, uncomplicated; E87.6 Hypokalemia; Z88.5 Allergy status to narcotic agent; Z79.891 Long term (current) use of opiate analgesic; Z90.710 Acquired absence of both cervix and uterus; Z95.820 Peripheral vascular angioplasty status with implants and grafts; Z90.89 Acquired absence of other organs; Z88.8 Allergy status to other drugs, medicaments and biological substances; Z88.1 Allergy status to other antibiotic agents; Z79.899 Other long term (current) drug therapy

== ENCOUNTER 2020-05-04 03:58 | Inpatient (IN) | payer OTHER ==
[2020-05-04] VITALS (7 sets, daily range): BP systolic 82–112; BP diastolic 38–81
[~2020-05-04] VITALS: Ht 160 cm; Wt 52.2 kg
--- NOTE | ~2020-05-04 | PROC ---
[address] [address] PROCEDURE REPORT Name: RAÚL CARIAS Room: [address] IN M.R.#: [id number] Admission: 05/04/20 Attend Phys: Rich Sheppard MD Discharge: 05/06/20 Date of : 58 Report #: [id number] THIS REPORT FOR: //name// cc: Federico Loredo MD, David L. MD ~ THIS REPORT FOR: //name// For GI report, please see the Provation report in Perceptive 7 content. By: 1054Medical Records Staff [facility] /REI
[~2020-05-04 03:58] MED LIST changes: +CIPRO500 M1 PO
[2020-05-04 04:53] LABS: HEMATOCRIT 38.9 % (37.0-47.0); MCH 28.4 pg (26.0-34.0); MCHC 33.4 g/dL (28.0-37.0); MCV 85.1 fL (80.0-100.0); MPV 8.3 fl. (7.2-11.1); NUCLEATED RBCS 0 /100WBC; PLATELET COUNT* 354 thou/uL (150-400); RBC 4.57 mil/uL (4.20-5.00); RDW-CV 14.2 % (10.5-14.5); WBC 31.3 thou/uL (4.0-11.0)
[2020-05-04 05:15] LABS: URINE BILIRUBIN NEGATIVE (Negative); URINE BLOOD 3+ (Negative); URINE CLARITY SL CLOUDY; URINE COLOR YELLOW; URINE GLUCOSE-RANDOM 1+ (Negative); URINE KETONES 1+ (Negative); URINE LEUKOCYTES-REFLEX TRACE (Negative); URINE NITRITE-REFLEX NEGATIVE (Negative); URINE PROTEIN NEGATIVE (Negative); URINE SPECIFIC GRAVITY 1.025 (1.005-1.030); URINE UROBILINOGEN 0.2 E.U./dl (0.2-1.0)
[2020-05-04 05:15] LABS: CALCIUM 8.7 mg/dL (8.5-10.1); CREATININE 1.1 mg/dL (0.6-1.3)
[2020-05-04 05:17] LABS: APTT 21.5 Seconds (25.0-31.3); PROTIME 10.7 Seconds (9.20-11.50)
[2020-05-04 05:23] LABS: POTASSIUM 2.8 mmol/L (3.5-5.1)
[2020-05-04 05:24] LABS: ALBUMIN 3.9 g/dL (3.4-5.0); TOTAL BILIRUBIN 0.3 mg/dL (<0.1-1.0); TOTAL PROTEIN 7.4 g/dL (6.4-8.2)
[2020-05-04 05:35] LABS: MUCUS 0-3 Light strn/LPF (None Seen); SQUAMOUS 0-3 Few /LPF (0-3); URINE RBC 3-10 Few /HPF (0-2); URINE WBC-REFLEX 0-5 Rare /HPF (0-5)
[2020-05-04 05:36] LABS: CASTS None Seen /LPF (None Seen); CRYSTALS None Seen /LPF (None Seen)
[2020-05-04 06:12] LABS: ABSOLUTE LYMPHOCYTES 1.9 thou/uL (0.8-5.3); ABSOLUTE MONOCYTES 0.3 thou/uL (0.0-1.2); ABSOLUTE NEUTROPHILS 29.1 thou/uL (1.6-8.1); ANISOCYTOSIS 1+; PLATELET ESTIMATE ADEQUATE; POIKILOCYTOSIS 1+
[2020-05-04 09:12] LABS: CALCIUM 7.8 mg/dL (8.5-10.1); CREATININE 0.8 mg/dL (0.6-1.3); MAGNESIUM 1.5 mg/dL (1.8-2.4)
[2020-05-04 09:14] LABS: POTASSIUM 3.8 mmol/L (3.5-5.1)
--- NOTE | 2020-05-04 15:07 | EKG ---
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: CELI : 1960 Requested By: Polly Guadarrama Order Number: [id number] MD: William Prince Measurements Intervals [place] Rate: 73 P: 80 ND: 157 QRS: 71 QRSD: 92 T: -13 QT: 492 QTc: 543 Interpretive Statements Sinus rhythm Borderline repolarization abnormality Prolonged QT interval Compared to ECG 09/30/2018 11:14:10 No significant changes Electronically Signed On 05-04-2020 15:07:47 CDT by William Prince [email or web address] <ELECTRONICALLY SIGNED> By: William Prince MD, [facility] 05/04/20 1507 0426 0426 William Prince MD, [facility] /EPI
--- NOTE | 2020-05-05 01:49 | CON ---
[address] [address] CONSULTATION Name: RAÚL CARIAS Room: [address] IN .R.#: [id number] Admission: 05/04/20 Attend Phys: Rich Sheppard MD Discharge: Date of : 58 Report #: [id number] THIS REPORT FOR: //name// cc: Federico Loredo MD, David L. MD ~ THIS REPORT FOR: //name// CC: Rich Loredo MD DICTATED BY: Sayda Neely [facility] DATE OF SERVICE: 05/04/2020 Please note at the time of this dictation, the patient was seen and physically examined by myself. REASON FOR CONSULTATION: Abdominal pain, nausea and vomiting. HISTORY OF PRESENT ILLNESS: The patient states about 01:00 in the morning, she started having nausea, vomiting, cold sweats and abdominal pain. She had a sudden onset of her symptoms. She has a longstanding history of ischemic colitis for the last 18 years and she feels like this was another episode. The patient does not take anything regularly for her bowels, only as needed. She states if she does, she will take a half a dose of MiraLax a couple of times a week. She states her bowels will go anywhere from being soft to hard pellets, but again she does not take anything regularly. Her last EGD and colonoscopy was in 07/2018. Her upper scope was normal and colon was normal as well. Currently, the patient states she is no longer having any nausea or vomiting and her pain is improved. It is more in the lower abdomen. She denied any bright red blood or any black drainage or stooling. She states she had some diarrhea and she feels like she is pretty cleaned out. The patient does have a history of chronic back pain, in which she does take Dilaudid for that as well. ALLERGIES: PERCOCET, HYDROCODONE AND FLAGYL. MEDICATIONS FROM HOME: See her current MAR, which would include Plavix, Zofran, and Prozac. She has not had her Plavix since yesterday. PAST MEDICAL HISTORY: Arthritis, chronic back pain, history of Clostridium difficile in 2008, recurrent ischemic colitis, depression, migraines, and Lyme disease. PAST SURGICAL HISTORY: Appendectomy, total hysterectomy, tubal ligation, and she has a stent in [place] [address] CONSULTATION Name: RAÚL CARIAS Room: [address] IN [facility]#: [id number] Admission: 05/04/20 Attend Phys: Rich Sheppard MD Discharge: Date of : 58 Report #: [id number] FAMILY HISTORY: Noncontributory. SOCIAL HISTORY: Continues to smoke cigarettes. Denies any alcohol or illegal drug use. REVIEW OF SYSTEMS: Twelve-point review of systems is essentially negative except what is mentioned in the HPI. PHYSICAL EXAMINATION: VITAL SIGNS: Temperature 36.1, pulse 94, respirations 16, and blood pressure 101/41. HEART: Regular rate and rhythm. LUNGS: Clear. ABDOMEN: Soft, positive bowel sounds in all 4 quadrants with tenderness noted more in the lower quadrants than upper. LABORATORY DATA: Hemoglobin is 13.8 and white count is 31.3. PT is 10.7 and INR is 1. Potassium was low at 2.8 on admission. CRP was elevated at 29.5. GFR is 73. CT of the abdomen and pelvis shows circumferential wall thickening throughout the entire colon. IMPRESSION: 1. Abdominal pain, likely related to ischemic colitis. 2. Constipation. 3. Leukocytosis. 4. Anticoagulant therapy, Plavix. 5. Hiatal hernia. PLAN: 1. Colonoscopy tomorrow with Dr. Schilling. 2. Further recommendations to be made once the procedure has been performed. Thank you for allowing us to participate in this patient's care. Please do not hesitate to call with any questions in regard to this consult. <ELECTRONICALLY SIGNED> By: Federico Schilling MD 05/05/20 0149 1150 1213Federico Schilling MD /nt
[2020-05-05 04:49] LABS: BASOPHILS 0.4 %; EOSINOPHILS 0.5 %; HEMOGLOBIN 11.1 gm/dL (12.0-15.0); LYMPHOCYTES 25.1 %; MCH 28.3 pg (26.0-34.0); MCHC 33.7 g/dL (28.0-37.0); MONOCYTES 9.1 %; MPV 8.1 fl. (7.2-11.1); NUCLEATED RBCS 0 /100WBC; POLYS 64.9 %; RBC 3.93 mil/uL (4.20-5.00); RDW-CV 14.3 % (10.5-14.5)
[2020-05-05 04:51] LABS: ABSOLUTE BASOPHILS 0.1 thou/uL (0.0-0.2); ABSOLUTE EOSINOPHILS 0.1 thou/uL (0.0-0.7); ABSOLUTE LYMPHOCYTES 3.6 thou/uL (0.8-5.3); ABSOLUTE MONOCYTES 1.3 thou/uL (0.0-1.2); ABSOLUTE NEUTROPHILS 9.3 thou/uL (1.6-8.1); PLATELET COUNT* 268 thou/uL (150-400); WBC 14.4 thou/uL (4.0-11.0)
[2020-05-05 05:04] LABS: ALBUMIN 3.3 g/dL (3.4-5.0); CALCIUM 7.9 mg/dL (8.5-10.1); MAGNESIUM 1.7 mg/dL (1.8-2.4); PHOSPHORUS* 2.7 mg/dL (2.5-4.9); TOTAL BILIRUBIN 0.4 mg/dL (<0.1-1.0); TOTAL PROTEIN 6.4 g/dL (6.4-8.2)
[2020-05-05 07:45] VITALS: BP 115/54
[2020-05-05 15:45] VITALS: BP 111/44
[2020-05-05 20:00] VITALS: BP 122/62
[2020-05-06] VITALS: BP 105/57
[2020-05-06 04:00] VITALS: BP 132/59
[2020-05-06 07:00] VITALS: BP 117/41
[2020-05-06] MEDS ORDERED: AUGMENTIN 500-1 EACH PO (07:38)
[2020-05-06] MEDS ORDERED: MIRALAX17 GM PO (07:38)
[2020-05-06] MEDS ORDERED: FLORANEX TABLE1 EACH PO (07:38)
[2020-05-06 08:23] VITALS: BP 117/41
== END 2020-05-06 09:17 | disposition home or self-care (01) | DRG 872 ==
LOC: M.ERS 03:58 → M.TBA-ER 05:51 → M.ORTHSURG 05:51
PROVIDERS: Personal Emergency Response Attendant; Surgery; ADMIT Internal Medicine; ATTEND Internal Medicine
PROC: 0DBN8ZX Excision of Sigmoid Colon, Via Natural or Artificial Opening Endoscopic, Diagnostic (ICD-10-PCS; principal; 2020-05-05)
PROC: 0DBL8ZX Excision of Transverse Colon, Via Natural or Artificial Opening Endoscopic, Diagnostic (ICD-10-PCS; principal; 2020-05-05)
PROC: 0DBM8ZX Excision of Descending Colon, Via Natural or Artificial Opening Endoscopic, Diagnostic (ICD-10-PCS; principal; 2020-05-05)
DX: A41.9 Sepsis, unspecified organism (principal); K55.9 Vascular disorder of intestine, unspecified; A69.20 Lyme disease, unspecified; K63.3 Ulcer of intestine; G43.909 Migraine, unspecified, not intractable, without status migrainosus; E87.6 Hypokalemia; K64.8 Other hemorrhoids; M19.90 Unspecified osteoarthritis, unspecified site; F32.9 Major depressive disorder, single episode, unspecified; G89.29 Other chronic pain; K59.00 Constipation, unspecified; K44.9 Diaphragmatic hernia without obstruction or gangrene; Z20.828 Contact with and (suspected) exposure to other viral communicable diseases; Z88.8 Allergy status to other drugs, medicaments and biological substances; Z88.5 Allergy status to narcotic agent; Z90.710 Acquired absence of both cervix and uterus; Z79.01 Long term (current) use of anticoagulants; D12.3 Benign neoplasm of transverse colon

== ENCOUNTER 2021-06-27 09:10 | Emergency (ER) | payer OTHER ==
[~2021-06-27] VITALS: Ht 160 cm; Wt 49.9 kg
[~2021-06-27 09:10] MED LIST changes: +AUGMENTIN 500-1 EACH PO; +FLORANEX TABLE1 EACH PO
[2021-06-27] MEDS ORDERED: PLAQUENIL200 MG PO (09:26)
--- NOTE | 2021-06-27 09:54 | EKG ---
[place] [address] ELECTROCARDIOGRAM REPORT Name: RAÚL CARIAS Room: [facility]#: [id number] Admission: 06/27/21 Attend Phys: Discharge: Date of : 58 Date of Service: 06/27/[address] Report #: [id number] THIS REPORT FOR: //name// [facility] ED Test Date: 2021-06-27 Test Time: 09:22:10 Pat Name: RAÚL CARIAS Department: Room: Gender: Dental Officer: [facility] : 1960 Requested By: Luis Hernandez Order Number: [id number] MD: Federico Chandler Measurements Intervals [place] Rate: 67 P: 79 AK: 161 QRS: 75 QRSD: 87 T: 11 QT: 520 QTc: 549 Interpretive Statements Sinus rhythm Minimal ST depression, lateral leads Prolonged QT interval Compared to ECG 05/04/2020 04:26:38 no change Electronically Signed On 06-27-2021 9:53:59 CDT by Federico Chandler [email or web address] <ELECTRONICALLY SIGNED> By: Federico Chandler MD, [facility] 06/27/21952 1 1 Federico Chandler MD, [facility] /EPI
[2021-06-27 10:03] LABS: HEMATOCRIT 38.2 % (37.0-47.0); HEMOGLOBIN 12.7 gm/dL (12.0-15.0); MCH 29.1 pg (26.0-34.0); MCHC 33.2 g/dL (28.0-37.0); MCV 87.7 fL (80.0-100.0); MPV 8.1 fl. (7.2-11.1); NUCLEATED RBCS 0 /100WBC; PLATELET COUNT* 326 thou/uL (150-400); RBC 4.36 mil/uL (4.20-5.00); WBC 24.4 thou/uL (4.0-11.0)
[2021-06-27 10:04] LABS: CREATININE 1.1 mg/dL (0.6-1.3); POTASSIUM 3.8 mmol/L (3.5-5.1)
[2021-06-27 10:14] LABS: ALBUMIN 3.9 g/dL (3.4-5.0); TOTAL BILIRUBIN 0.3 mg/dL (<0.1-1.0); TOTAL PROTEIN 7.3 g/dL (6.4-8.2)
[2021-06-27 10:37] LABS: URINE BILIRUBIN NEGATIVE (Negative); URINE BLOOD 1+ (Negative); URINE CLARITY CLEAR; URINE COLOR YELLOW; URINE GLUCOSE-RANDOM 1+ (Negative); URINE KETONES 1+ (Negative); URINE LEUKOCYTES-REFLEX NEGATIVE (Negative); URINE NITRITE-REFLEX NEGATIVE (Negative); URINE PROTEIN NEGATIVE (Negative); URINE SPECIFIC GRAVITY 1.025 (1.005-1.030); URINE UROBILINOGEN 0.2 E.U./dl (0.2-1.0)
[2021-06-27 10:47] LABS: SQUAMOUS 0-3 Few /LPF (0-3); URINE RBC 3-10 Few /HPF (0-2); URINE WBC-REFLEX 0-5 Rare /HPF (0-5)
[2021-06-27 10:48] LABS: BACTERIA-REFLEX 1-9 Few /HPF (None Seen); CASTS None Seen /LPF (None Seen); MUCUS 0-3 Light strn/LPF (None Seen)
[2021-06-27 10:49] LABS: CRYSTALS None Seen /LPF (None Seen)
[2021-06-27] MEDS ORDERED: ZOFRAN ODT4 MG DISSOLVE (11:09)
[2021-06-27] MEDS ORDERED: PHENERGAN 25 MG25 M1 PO (11:29)
[2021-06-27 11:34] VITALS: BP 122/68
[2021-06-27 11:53] LABS: ABSOLUTE LYMPHOCYTES 2.7 thou/uL (0.8-5.3); ABSOLUTE NEUTROPHILS 20.7 thou/uL (1.6-8.1); ANISOCYTOSIS 1+; PLATELET ESTIMATE ADEQUATE; POIKILOCYTOSIS 1+
== END 2021-06-27 11:35 | disposition home or self-care (01) ==
LOC: M.ERS 09:10
PROVIDERS: Family Medicine
DX: R11.15 Cyclical vomiting syndrome unrelated to migraine (principal); M19.90 Unspecified osteoarthritis, unspecified site; G43.909 Migraine, unspecified, not intractable, without status migrainosus; F17.210 Nicotine dependence, cigarettes, uncomplicated; Z90.710 Acquired absence of both cervix and uterus; Z90.49 Acquired absence of other specified parts of digestive tract; Z79.899 Other long term (current) drug therapy; Z88.5 Allergy status to narcotic agent

== ENCOUNTER 2021-11-17 03:09 | Inpatient (IN) | payer OTHER ==
[~2021-11-17] VITALS: Ht 160 cm; Wt 49.9 kg
[~2021-11-17 03:09] MED LIST changes: +PHENERGAN 25 MG25 M1 PO; +PLAQUENIL200 MG PO; +ZOFRAN ODT4 MG DISSOLVE
[2021-11-17 03:10] VITALS: BP 134/70
[2021-11-17 04:55] LABS: URINE BILIRUBIN NEGATIVE (Negative); URINE BLOOD 1+ (Negative); URINE COLOR YELLOW; URINE GLUCOSE-RANDOM NEGATIVE (Negative); URINE KETONES TRACE (Negative); URINE LEUKOCYTES-REFLEX NEGATIVE (Negative); URINE NITRITE-REFLEX NEGATIVE (Negative); URINE PROTEIN TRACE (Negative); URINE SPECIFIC GRAVITY >= 1.030 (1.005-1.030)
[2021-11-17 05:01] LABS: HEMOGLOBIN 12.5 gm/dL (12.0-15.0); MCH 28.5 pg (26.0-34.0); MCHC 32.9 g/dL (28.0-37.0); MCV 86.5 fL (80.0-100.0); MPV 8.1 fl. (7.2-11.1); NUCLEATED RBCS 0 /100WBC; PLATELET COUNT* 333 thou/uL (150-400); RBC 4.39 mil/uL (4.20-5.00); WBC 29.9 thou/uL (4.0-11.0)
[2021-11-17 05:01] LABS: URINE CLARITY SL HAZY
[2021-11-17 05:26] LABS: CALCIUM 9.4 mg/dL (8.5-10.1); CREATININE 1.2 mg/dL (0.6-1.3)
[2021-11-17 05:31] LABS: ALBUMIN 4.1 g/dL (3.4-5.0); TOTAL BILIRUBIN 0.3 mg/dL (<0.1-1.0)
[2021-11-17 05:35] LABS: POTASSIUM 2.7 mmol/L (3.5-5.1)
[2021-11-17 05:47] LABS: SQUAMOUS 0-3 Few /LPF (0-3); URINE WBC-REFLEX 6-15 Few /HPF (0-5)
[2021-11-17 05:48] LABS: CASTS None Seen /LPF (None Seen); CRYSTALS None Seen /LPF (None Seen); MUCUS 0-3 Light strn/LPF (None Seen); URINE RBC 3-10 Few /HPF (0-2)
[2021-11-17 07:38] LABS: ABSOLUTE LYMPHOCYTES 2.4 thou/uL (0.8-5.3); ABSOLUTE MONOCYTES 0.9 thou/uL (0.0-1.2); ABSOLUTE NEUTROPHILS 26.6 thou/uL (1.6-8.1); PLATELET ESTIMATE ADEQUATE
[2021-11-17 10:00] VITALS: BP 95/46
[2021-11-17 18:47] VITALS: BP 100/37
[2021-11-17 21:55] VITALS: BP 102/46
[2021-11-18 02:55] VITALS: BP 100/53
[2021-11-18 06:24] LABS: CREATININE 0.8 mg/dL (0.6-1.3); POTASSIUM 3.6 mmol/L (3.5-5.1); TOTAL BILIRUBIN 0.4 mg/dL (<0.1-1.0); TOTAL PROTEIN 5.7 g/dL (6.4-8.2)
[2021-11-18 08:00] VITALS: BP 100/53
[2021-11-18 10:40] VITALS: BP 100/53
[2021-11-18 10:55] VITALS: BP 100/53
== END 2021-11-18 10:54 | disposition home or self-care (01) | DRG 871 ==
LOC: M.ERS 03:09 → M.TBA-ER 06:14
PROVIDERS: Emergency Medicine; Internal Medicine; ADMIT Internal Medicine; ATTEND Internal Medicine
DX: A41.9 Sepsis, unspecified organism (principal); K55.039 Acute (reversible) ischemia of large intestine, extent unspecified; A04.9 Bacterial intestinal infection, unspecified; E44.0 Moderate protein-calorie malnutrition; Z68.1 Body mass index [BMI] 19.9 or less, adult; F32.9 Major depressive disorder, single episode, unspecified; M19.90 Unspecified osteoarthritis, unspecified site; G43.909 Migraine, unspecified, not intractable, without status migrainosus; F12.90 Cannabis use, unspecified, uncomplicated; E87.6 Hypokalemia; E83.42 Hypomagnesemia; Z20.822 Contact with and (suspected) exposure to COVID-19; Z90.49 Acquired absence of other specified parts of digestive tract; Z90.710 Acquired absence of both cervix and uterus; Z88.6 Allergy status to analgesic agent; Z88.8 Allergy status to other drugs, medicaments and biological substances; Z82.49 Family history of ischemic heart disease and other diseases of the circulatory system